=== PATIENT | female | born 1975 | race African-American/Black ===

== ENCOUNTER 2017-09-20 14:46 | Emergency (ER) | payer OTHER ==
[~2017-09-20] VITALS: Ht 165.1 cm; Wt 86.8 kg
[2017-09-20 16:24] LABS: HEMATOCRIT 37.2 % (36.0-46.0); HEMOGLOBIN 13.2 G/DL (11.9-15.5); MCH 31.7 PG (29.0-34.0); MCHC 35.5 G/DL (30.0-36.0); MCV 89.4 FL (83-99); PLATELET COUNT 269 K/uL (156-360); RBC DIS.WIDTH-CV 11.8 % (11.8-14.6); RBC DIS.WIDTH-SD 37.9 % (39-53); RED BLOOD COUNT 4.16 M/uL (3.80-5.20); WHITE BLOOD COUNT 12.7 K/uL (4.1-10.2)
[2017-09-20 16:33] LABS: CHLORIDE 103 mEq/L (99-109); POTASSIUM 3.1 mEq/L (3.7-5.4); SODIUM 137 mEq/L (136-147)
[2017-09-20 16:35] LABS: GLUCOSE 250 mg/dL (70-99)
[2017-09-20 16:39] LABS: CREATININE 0.8 mg/dL (0.6-1.3)
[2017-09-20 16:40] LABS: UREA NITROGEN (BUN) 9 mg/dL (9-23)
[2017-09-20 16:44] LABS: GFR ESTIMATE (CALCULATED) > 59 mL/min/
[2017-09-20] MEDS ORDERED: NOVOLOG MI100 UNIT/3 SC (17:15)
[2017-09-20 17:38] VITALS: BP 133/72
== END 2017-09-20 17:39 | disposition home or self-care (01) ==
LOC: EME 14:46
PROVIDERS: Family Medicine
DX: E11.65 Type 2 diabetes mellitus with hyperglycemia (principal); Z79.4 Long term (current) use of insulin; F17.200 Nicotine dependence, unspecified, uncomplicated
CPT/HCPCS: 80048; 85027; 99281; 99283